=== PATIENT | female | born 1975 | race African-American/Black ===

== ENCOUNTER 2021-11-13 13:53 | Emergency (ER) | payer MEDICAID ==
[~2021-11-13] VITALS: Ht 167.6 cm; Wt 85.0 kg
[2021-11-13] MEDS ORDERED: ONDANSETRON HCL 4MG/2ML INJ IV ONE (14:15)
[2021-11-13] MEDS ORDERED: MORPHINE SULFATE 4 MG/ML CPJ (NOT FOR IM USE) IV ONE (14:15)
[2021-11-13 15:24] LABS: HEMATOCRIT. 43.3 % (36.0-48.0); HEMOGLOBIN. 14.8 g/dL (12.0-16.0); MEAN CORPUSCULAR HEMOGLOBIN 33.1 pg (28.0-32.0); MEAN CORPUSCULAR VOLUME 96.7 fL (81.0-99.0); MEAN PLATELET VOLUME 8.9 fl (7.4-10.4); PLATELET 279 x1000/uL (130-400); RED BLOOD CELL COUNT 4.48 mill/uL (4.2-5.4); RED CELL DISTRIBUTION WIDTH 13.5 % (11.6-14.6)
[2021-11-13 15:29] LABS: CLARITY URINE CLEAR (CLEAR); COLOR URINE YELLOW (YELLOW); KETONES URINE 3+ (NEGATIVE); LEUKOCYTE ESTERASE URINE NEGATIVE (NEGATIVE); NITRITE URINE NEGATIVE (NEGATIVE); OCCULT BLOOD URINE NEGATIVE (NEGATIVE); PH URINE >=9.0 (4.5-8.0); PROTEIN URINE 2+ (NEGATIVE); SPECIFIC GRAVITY URINE 1.025 (1.005-1.030); UROBILINOGEN URINE 0.2 E.U./dL (0.2-1.0)
[2021-11-13 15:36] LABS: HCG SCREEN NEGATIVE
[2021-11-13 16:30] VITALS: BP 150/70
[2021-11-13 17:44] LABS: CHLORIDE 111 mEq/L (98-107)
[2021-11-13] MEDS ORDERED: ONDA4TAB5 MT (18:13)
[2021-11-13] MEDS ORDERED: ACET-2708 MT (18:13)
[2021-11-13] MEDS ORDERED: NAPR-1176 MT (18:13)
[2021-11-13 18:20] LABS: PLATELET ESTIMATE NORMAL
== END 2021-11-13 19:06 | disposition home or self-care (01) ==
LOC: ER 13:53
DX: K80.20 Calculus of gallbladder without cholecystitis without obstruction (principal); R10.11 Right upper quadrant pain; R10.13 Epigastric pain
CPT/HCPCS: 36415; 76705; 80053; 81003; 83690; 84703; 85025; 96374; 96375; 99284; J2270; J2405

== ENCOUNTER 2024-11-22 17:34 | Emergency (ER) | payer MEDICAID ==
[~2024-11-22] VITALS: Ht 167.6 cm; Wt 80.0 kg
[~2024-11-22 17:34] MED LIST: ACET-2708 MT; NAPR-1176 MT; ONDA4TAB5 MT
[2024-11-22 17:36] VITALS: O2SAT 100
[2024-11-22] MEDS: KETOROLAC 30MG/ML VIAL IV ONE (18:45)
[2024-11-22] MEDS: ONDANSETRON HCL 4MG/2ML INJ IV ONE (18:45)
[2024-11-22] MEDS: MORPHINE SULFATE 4 MG/ML INJ (FOR IV/IM USE) IV ONE (20:08)
[2024-11-22 20:25] LABS: CARBON DIOXIDE 21 mEq/L (21-32); CHLORIDE 106 mEq/L (98-107); POTASSIUM 3.6 mEq/L (3.5-5.1); SODIUM 142 mEq/L (136-145)
[2024-11-22 20:26] LABS: CALCIUM 10.4 mg/dL (8.7-10.4)
[2024-11-22 20:30] LABS: CREATININE 0.9 mg/dL (0.6-1.0)
[2024-11-22 20:31] LABS: GLUCOSE 138 mg/dL (70-105); UREA NITROGEN BLOOD 9 mg/dL (9-23)
[2024-11-22 20:32] LABS: ALANINE AMINOTRANSFERASE < 7 IU/L (10-49)
[2024-11-22 20:33] LABS: ALBUMIN 4.3 g/dL (3.2-4.8); ASPARTATE AMINOTRANSFERASE 12 IU/L (<34); BILIRUBIN DIRECT 0.3 mg/dL (<=3.0); BILIRUBIN TOTAL 0.9 mg/dL (0.1-1.0); PROTEIN TOTAL 7.2 g/dL (6.0-8.3)
[2024-11-22 21:10] LABS: HCG SCREEN INDETERMINATE
[2024-11-22 21:17] LABS: INR 1.1; PROTHROMBIN TIME 11.9 sec (9.6-11.0)
[2024-11-22 21:18] LABS: BASOPHILS % 0.6 % (0.0-2.0); EOSINOPHILS % 0.1 % (0.0-5.0); HEMATOCRIT. 45.8 % (36.0-48.0); LYMPHOCYTES % 12.8 % (20.0-50.0); MEAN CORPUSCULAR HEMOGLOBIN 31.3 pg (28.0-32.0); MEAN CORPUSCULAR HGB CONC 32.7 g/dL (31.0-37.0); MEAN CORPUSCULAR VOLUME 95.8 fL (81.0-99.0); MONOCYTES % 3.1 % (2.0-8.0); NEUTROPHILS % 83.4 % (40.0-76.0); RED BLOOD CELL COUNT 4.78 mill/uL (4.2-5.4); RED CELL DISTRIBUTION WIDTH 15.1 % (11.6-14.6); WHITE BLOOD COUNT 12.5 x1000/uL (4.5-11.0)
[2024-11-22 21:27] LABS: DIFFERENTIAL COMMENT 1
[2024-11-22] MEDS ORDERED: IBUP-2029 MT (22:49)
[2024-11-22 23:59] LABS: CLARITY URINE CLEAR (CLEAR); COLOR URINE YELLOW (YELLOW); GLUCOSE URINE NEGATIVE (NEGATIVE); KETONES URINE 3+ (NEGATIVE); LEUKOCYTE ESTERASE URINE NEGATIVE (NEGATIVE); NITRITE URINE NEGATIVE (NEGATIVE); OCCULT BLOOD URINE TRACE (NEGATIVE); PROTEIN URINE TRACE (NEGATIVE); SPECIFIC GRAVITY URINE 1.019 (1.005-1.030)
[2024-11-23 00:24] LABS: MEAN PLATELET VOLUME 10.4 fl (7.4-10.4); PLATELET 226 x1000/uL (130-400)
[2024-11-23 00:28] VITALS: BP 136/78; PULSE 79; RESP 20; TEMP 36.6; O2SAT 100
[2024-11-23] MEDS ORDERED: NAPR-1486 MT (01:32)
[2024-11-23] MEDS ORDERED: ONDA4TAB50 MT (01:32)
[2024-11-23 01:41] LABS: SQUAMOUS EPITHELIAL CELL URINE FEW /lpf (RARE/1+); WBC URINE 0-2 /hpf (0-2)
[2024-11-23 01:42] LABS: BACTERIA URINE TRACE
== END 2024-11-23 02:43 | disposition home or self-care (01) ==
LOC: ER 17:34
DX: R10.11 Right upper quadrant pain (principal); K80.20 Calculus of gallbladder without cholecystitis without obstruction; F10.90 Alcohol use, unspecified, uncomplicated; Z79.1 Long term (current) use of non-steroidal anti-inflammatories (NSAID); Y90.9 Presence of alcohol in blood, level not specified
CPT/HCPCS: 80076; 80048; 81003; 84703; 84702; 83690; 85025; 85610; 36415; 76700; 96374; 96375; 99285; J1885; J2405; J2270; Z7610